=== PATIENT | male | born 1960 | race Two or more races ===

== ENCOUNTER 2018-01-03 04:45 | Emergency (ER) | payer OTHER ==
--- NOTE | 2018-01-03 05:39 | ED Physician Chart ---
ED Chief Complaint/HPI - Patient Information Date Seen:: 01/03/18 Time Seen:: 05:04 Chief Complaint:: cough History of Present Illness:: THIS IS A 57 YO MALE CHF PATIENT WITH CONCERN ABOUT HAVING TROUBLE SLEEPING AND LYING FLAT FOR HE PAST FEW NIGHTS WHICH ARE GETTING WORSE. HE DENIES CHEST PAIN AND SHORTNESS OF BREATH. HE DENIES FEVER, SPUTUM PRODUCTION AND CHEST CONGESTION. Allergies:: Allergies Allergy/AdvReac Type Severity Reaction Status Date / Time No Known Allergies Allergy Verified 01/03/18 05:09 Vitals:: Vital Signs - 8 hr 01/03/18 04:50 Temp 98.3 F HR 71 RR 20 BP 135/95 O2 Sat % 99 Historian:: Patient Review:: Nurse's Note Reviewed, Old Chart Reviewed ED Review of Systems - Review of Systems General/Constitutional: No fever, No chills, No weight loss, No weakness, No diaphoresis, No edema, No loss of appetite Skin: No skin lesions, No rash, No bruising Head: No headache, No light-headedness Eyes: No loss of vision, No pain, No diplopia ENT: No earache, No nasal drainage, No sore throat, No tinnitus Neck: No neck pain, No swelling, No thyromegaly, No stiffness, No mass noted Cardio Vascular: No chest pain, No palpitations, No PND, orthopnea, No edema Pulmonary: No SOB, Cough, No sputum, No wheezing GI: No nausea, No vomiting, No diarrhea, No pain, No melena, No hematochezia, No constipation, No hematemesis G/U: No dysuria, No frequency, No hematuria Musculoskeletal: No bone or joint pain, No back pain, No muscle pain Endocrine: No polyuria, No polydipsia Psychiatric: No prior psych history, No depression, No anxiety, No suicidal ideation Hematopoietic: No bruising, No lymphadenopathy Allergic/Immuno: No urticaria, No angioedema Neurological: No syncope, No focal symptoms, No weakness, No paresthesia, No headache, No seizure, No dizziness, No confusion, No vertigo ED Past Medical History - Past Medical History Obtainable: Yes Past Medical History: HTN, CAD, CHF, Other (gout) Family History: Other (FATHER HAD CHF) Social History: Smoker (STOPPED SMOKING 10 YRS AGO), No Alcohol, No Drug Use Surgical History: Pacemaker (DEFIB/PACER), other (RIGHT SHOULDER SURGERY) Psychiatricy History: None Family Medical History - Family Member Mother History Unknown: Yes Living Status: Still Living Father Ethnicity: Living Status: Hx Family Congestive Heart Failure: Yes ED Physical Exam - Physical Examination General/Constitutional: Awake, Well-developed, well-nourished, Alert, No distress, GCS 15, Non-toxic appearing, Ambulatory Head: Atraumatic Eyes: Lids, conjuctiva normal, PERRL, EOMI Skin: Nl inspection, No rash, No skin lesions, No ecchymosis, Well hydrated, No lymphadenopathy ENMT: External ears, nose nl, Nasal exam nl, Lips, teeth, gums nl Neck: Nontender, Full ROM w/o pain, No JVD, No nuchal rigidity, No bruit, No mass, No stridor Respiratory: Nl effort/Exclusion, Clear to Auscultation, No Wheeze/Rhonchi/Rales Cardio Vascular: RRR (PACED RYTHM IRREGULAR PVCS), No murmur, gallop, rubs, NL S1 S2 GI: No tenderness/rebounding/guarding, No organomegaly, No hernia, Normal BS's, Nondistended, No mass/bruits, No McBurney tenderness : No CVA tenderness Extremities: No tenderness or effusion, Full ROM, normal strength in all extremities, No edema, Normal digits & nails Neuro/Psych: Alert/oriented, DTR's symmetric, Normal sensory exam, Normal motor strength, Judgement/insight normal, Mood normal, Normal gait, No focal deficits Misc: Normal back, No paraspinal tenderness ED Labs/Radiology/EKG Results - Lab Results Results: Abnormal Lab Results 01/03/18 01/03/18 01/03/18 05:36 05:36 05:36 WBC 5.7 RBC 4.43 Hgb 13.2 Hct 40.0 L MCV 90.3 MCH 29.9 MCHC Differential 33.1 RDW 12.5 Plt Count 200 MPV 7.4 Neutrophils % 47.0 Lymphocytes % 35.3 Monocytes % 11.4 H Eosinophils % 6.3 H Basophils % 0.0 PT 10.9 INR 1.05 Sodium 135 L Potassium 3.9 Chloride 103 Carbon Dioxide 27.0 Anion Gap 8.9 BUN 20 Creatinine 0.7 Est GFR ( Amer) > 60.0 Est GFR (Non-Af Amer) > 60.0 BUN/Creatinine Ratio 28.6 Glucose 102 Calcium 9.3 Total Bilirubin 0.5 AST 12 L ALT 16 Alkaline Phosphatase 52 Troponin I Total Protein 7.1 Albumin 4.0 L Globulin 3.1 Albumin/Globulin Ratio 1.3 Urine Source Urine Color Urine Clarity Urine pH Ur Specific [place] Urine Protein Urine Glucose (UA) Urine Ketones Urine Blood Urine Nitrate Urine Bilirubin Urine Urobilinogen Ur Leukocyte Esterase Urine RBC Urine WBC Ur Epithelial Cells Urine Bacteria 01/03/18 01/03/18 05:36 05:50 WBC RBC Hgb Hct MCV MCH MCHC Differential RDW Plt Count MPV Neutrophils % Lymphocytes % Monocytes % Eosinophils % Basophils % PT INR Sodium Potassium Chloride Carbon Dioxide Anion Gap BUN Creatinine Est GFR ( Amer) Est GFR (Non-Af Amer) BUN/Creatinine Ratio Glucose Calcium Total Bilirubin AST ALT Alkaline Phosphatase Troponin I 0.01 Total Protein Albumin Globulin Albumin/Globulin Ratio Urine Source CLEAN C Urine Color YELLOW Urine Clarity CLEAR Urine pH 5.5 Ur Specific [place] 1.025 Urine Protein NEGATIVE Urine Glucose (UA) NEGATIVE Urine Ketones NEGATIVE Urine Blood NEGATIVE Urine Nitrate NEGATIVE Urine Bilirubin NEGATIVE Urine Urobilinogen 0.2 Ur Leukocyte Esterase NEGATIVE Urine RBC 0-2 H Urine WBC 0-2 Ur Epithelial Cells FEW Urine Bacteria OCCASIONAL - Radiology Results Results: cardiomegaly - EKG Interpretations EKG Time:: 05:21 Rate & Rhythm: 67 PACED [place]: LEFT AXIS Comments:: PVC ARE NOTED IN BETWEEN THE PACE SPIKES. ED Assessment - Assessment General Assessment: ALLERGIC BRONCHITIS PND ED Septic Shock - . Is Septic Shock (SBP<90, OR Lactate>4 mmol\L) present?: No - <6hrs of presentation: Vital Signs: Vital Signs - 8 hr 01/03/18 04:50 Temp 98.3 F HR 71 RR 20 BP 135/95 O2 Sat % 99 ED Reassessment (Disposition) - Reassessment Reassessment:: PND Reassessment Condition:: Unchanged - Diagnosis Diagnosis:: ALLERGIC BRONCHITIS PND - Aftercare/Follow up Instructions Aftercare/Follow-Up Instructions:: Counseled pt regarding lab results/diagnosis & need follow up, Refer to Discharge Instructions, Counseled pt & family regarding lab results/diagnosis & need follow up Medication Prescribed:: PREDNISONE - Patient Disposition Discharge/Transfer:: Home Condition at Disposition:: Stable ED Discharge Plan - Patient Disposition Admit/Discharge/Transfer: PT DISCHARGED HOME Condition at Disposition: Unchanged Additional Instructions: SEE YOUR PMD ON FRIDAY WITH COPIES OF THE LAB WITH THE PRESCRIPTION.
[2018-01-03 05:57] LABS: URINE MICROSCOPIC INDICATED? YES; URINE SOURCE CLEAN C
[2018-01-03 06:00] LABS: URINE BILIRUBIN NEGATIVE (NEGATIVE); URINE BLOOD NEGATIVE (NEGATIVE); URINE GLUCOSE (UA) NEGATIVE (NEGATIVE); URINE KETONE NEGATIVE (NEGATIVE); URINE LEUKOCYTE ESTERASE NEGATIVE (NEGATIVE); URINE NITRATE NEGATIVE (NEGATIVE); URINE PH 5.5 (4.6 - 8.0); URINE PROTEIN NEGATIVE (NEGATIVE); URINE UROBILINOGEN 0.2 E.U./dL (0.2 - 1.0)
[2018-01-03 06:01] LABS: % EOSINOPHILS 6.3 % (0.0-5.0); % LYMPHOCYTES 35.3 % (20.0-50.0); % MONOCYTES 11.4 % (2.0-10.0); EOSINOPHILE ABSOLUTE 0.4 Th/cmm (0.1-0.4); HEMOGLOBIN 13.2 gm/dL (12-16); MEAN CELL VOLUME 90.3 fl (80-99); MEAN CORPUSCULAR HEMOGLOBIN 29.9 pg (26.0-30.0); MEAN CORPUSCULAR HGB CONC 33.1 pg (28.0-36.0); MEAN PLATELET VOLUME 7.4 fl; MONOCYTE ABSOLUTE 0.6 Th/cmm (0.3-1.0); NEUTROPHILE ABSOLUTE 2.7 Th/cmm (1.8-8.0); PLATELET COUNT 200 Th/cmm (150-400); RED BLOOD COUNT 4.43 Mil/cmm (4.30-5.70); RED CELL DISTRIBUTION WIDTH 12.5 % (11.5-20.0); WHITE BLOOD COUNT 5.7 Th/cmm (4.8-10.8)
[2018-01-03 06:04] LABS: URINE CLARITY CLEAR (CLEAR); URINE COLOR YELLOW
[2018-01-03 06:10] LABS: INR 1.05 (0.5-1.4); PROTHROMBIN TIME (TEST) 10.9 SECONDS (9.5-11.5)
[2018-01-03 06:15] LABS: URINE RBC 0-2 /hpf (0-5)
[2018-01-03 06:16] LABS: URINE BACTERIA OCCASIONAL /hpf (NONE SEEN); URINE EPITHELIAL CELLS FEW /lpf (FEW); URINE WBC 0-2 /hpf (0-5)
[2018-01-03 06:20] LABS: ALB/GLOB RATIO 1.3 (1.0-1.8); ALKALINE PHOSPHATASE 52 U/L (34-104); ANION GAP 8.9 (7.0-16.0); BILIRUBIN,TOTAL 0.5 mg/dL (0.3-1.0); BUN - UREA NITROGEN 20 mg/dL (7-25); CALCIUM SERUM 9.3 mg/dL (8.6-10.3); CHLORIDE 103 mEq/L (98-107); CREATININE - SERUM 0.7 mg/dL (0.7-1.3); GFR AFRICAN-AMERICAN > 60.0 ml/min (>90); GFR NON AFRICAN-AMERICAN > 60.0 ml/min; GLUCOSE 102 mg/dL (70-105); POTASSIUM SERUM 3.9 mEq/L (3.5-5.1); SGOT 12 U/L (13-39); SGPT/ALT 16 U/L (7-52); SODIUM SERUM 135 mEq/L (136-145); TOTAL PROTEIN,SERUM 7.1 gm/dL (6.0-8.3)
[2018-01-03 06:25] LABS: AMPHETAMINE URINE NEGATIVE (NEGATIVE); BARBITURATES URINE NEGATIVE (NEGATIVE); COCAINE METABOLITE QUAL URINE NEGATIVE (NEGATIVE); PHENCYCLIDINE (PCP) URINE NEGATIVE (NEGATIVE)
[2018-01-03 06:26] LABS: BENZODIAZEPINES QUAL URINE NEGATIVE (NEGATIVE); CANNABINOID THC NEGATIVE (NEGATIVE); METHADONE URINE NEGATIVE (NEGATIVE); METHAMPHETAMINES QUAL URINE POSITIVE (NEGATIVE); OPIATES (MORPHINE) QUAL. URINE NEGATIVE (NEGATIVE); TRICYCLICS (TCA) QUAL. URINE NEGATIVE (NEGATIVE)
--- NOTE | 2018-01-03 09:06 | Diagnostic Imaging Report ---
CHEST X-RAY: AP view INDICATION: Cough COMPARISON: None FINDINGS: Left chest wall pacer is noted with leads in the region of the right ventricle and right atrium and epicardial lead. Mild increased interstitial lung markings are noted with no focal consolidation, or pleural effusions. Mild cardiomegaly is noted. Degenerative changes of the spine are noted. IMPRESSION: Mild increased interstitial lung markings probably due to chronic lung changes. No focal consolidation or evidence of myesha CHF. Mild cardiomegaly. Pacemaker noted.
== END 2018-01-03 06:55 | disposition home or self-care (01) ==
LOC: ER 04:45
DX: J45.909 Unspecified asthma, uncomplicated (principal); I11.0 Hypertensive heart disease with heart failure; I50.9 Heart failure, unspecified; I25.10 Atherosclerotic heart disease of native coronary artery without angina pectoris; Z87.891 Personal history of nicotine dependence; Z95.0 Presence of cardiac pacemaker
CPT/HCPCS: 99285; 93005; 71045; 84484; 83880; 36415; 80307; 84443; 85025; 85610; 81001; 80053; J7510